=== PATIENT | female | born 1980 | race African-American/Black ===

== ENCOUNTER 2025-10-26 23:07 | Emergency (ER) | payer MEDICARE, MEDICAID ==
[~2025-10-26 23:07] MED LIST: Iopamidol 370 76% 100 ML VIAL ONE
[2025-10-27 00:14] LABS: Hematocrit 47.6 % (36.0-47.0); Hemoglobin 15.0 g/dL (12.0-16.0); Mean Corpuscular Hemoglobin 30.1 pg (27.0-31.0); Mean Corpuscular Volume 95.4 fl (78.0-98.0); Platelet Count 217 10x3/uL (130-400); Red Blood Cell (RBC) Count 4.99 mill/uL (4.20-5.40); White Blood Cell (WBC) Count 12.2 10x3/uL (4.8-10.8)
[2025-10-27 00:15] LABS: MDiff Complete? YES
[2025-10-27 00:19] LABS: Glucose, Urine (Dipstick) Negative (Negative); Leukocyte Trace (Negative); Protein, Urine (Dipstick) 100 mg/dL (Neg-Trace); Specific Gravity, Urine 1.025 (1.005-1.030)
[2025-10-27 00:24] LABS: Bacteria/HPF Rare-Few HPF (None Seen); CAUTI Indications for Culture Pelvic or flank pain; WBC/HPF 21-50 HPF (0-3)
[2025-10-27 00:25] LABS: ALT (SGPT) 11 U/L (Less than 34); AST (SGOT) 28 U/L (11-34); Albumin 4.9 g/dL (3.1-4.5); Alkaline Phosphatase 65 U/L (40-110); Anion Gap 24 mmol/L (10-20); BUN (Urea Nitrogen) 13 mg/dL (7.0-18.7); Bilirubin, Total 0.4 mg/dL (0.3-1.2); Calc. Creatinine Clearance 0 mL/min (70-130); Calcium 9.3 mg/dL (7.8-10.44); Carbon Dioxide 18 mmol/L (22-29); Chloride 103 mmol/L (98-107); Globulin 3.8 g/dL (2.4-3.5); Glucose 123 mg/dL (70-105); Lipase 19 U/L (8-78); Potassium 2.9 mmol/L (3.5-5.1); Sodium 142 mmol/L (136-145)
[2025-10-27 00:25] LABS: Mucous/LPF 2+ LPF (<2+); Urine Culture Reflex Yes Yes
[2025-10-27 00:27] LABS: Troponin I Less than 0.010 ng/mL (< 0.028)
[2025-10-27 00:27] LABS: Cocaine Metabolite Screen Negative (Negative); THC/Cannabinoid Screen PRELIM POSITIVE (Negative); Tricyclic Screen Negative (Negative)
[2025-10-27] MEDS ORDERED: Potassium Chloride 20 MEQ (100 mL) BAG ONE (01:21)
[2025-10-27] MEDS ORDERED: Ondansetron PF 4 MG/2 ML Vial ONE ×2 (02:05→04:04)
[2025-10-27 02:36] LABS: Troponin I Less than 0.010 ng/mL (< 0.028)
[2025-10-27] MEDS ORDERED: Pantoprazole 40 MG VIAL ONE (04:04)
[2025-10-27] MEDS ORDERED: NIFEdipine XL 30 MG ER.TAB PO SCH (04:15)
== END 2025-10-27 06:30 | disposition home or self-care (01) ==
LOC: MADERS 23:07
DX: R11.16 Cannabis hyperemesis syndrome (principal); K29.70 Gastritis, unspecified, without bleeding; E87.6 Hypokalemia; E87.20 Acidosis, unspecified; I10 Essential (primary) hypertension; Z79.899 Other long term (current) drug therapy
CPT/HCPCS: 74177; 80053; 80306; 81001; 83605; 83690; 84484 ×2; 85025; 87086; 87428; 93005; J2270; J2405; J2470; J3480; J7120; 96361; 96374; 96375; 96376; Q9967